=== PATIENT | male | born 1965 | race Caucasian/White ===

== ENCOUNTER 2020-11-14 17:26 | Emergency (ER) | payer SELFPAY ==
--- NOTE | 2020-11-14 17:31 | ED.BACK ---
HPI - Back Pain/Injury General Chief Complaint: Back Pain/Injury Stated Complaint: weak / back pain Time Seen by Provider: 11/14/20 17:31 Source: patient and RN notes reviewed History of Present Illness HPI Narrative: Patient is a 55-year-old male who presents the urgent care with complaints of weakness and back pain. Patient states the weakness started about a month and a half ago and is significantly gotten worse over the last couple days. Patient states that he feels like his legs are going to give out from underneath him . Patient states the back pain has been ongoing for approximately 1 year or greater. Patient has no recent new falls or injuries. Patient has no confusion but does complain of some intermittent dizziness. Patient is currently denying any headaches. No notable slurred speech or weakness to one side greater than the other. No other acute complaints. No acute distress noted. Patient ambulates without difficulty. Patient aware of the plan of care. Some parts of this dictation were generated by voice recognition software and may contain typographical and/or grammatical inaccuracies. Related Data Home Medications Medication Instructions Recorded Confirmed No Home Medications 11/14/20 11/14/20 Allergies Allergy/AdvReac Type Severity Reaction Status Date / Time No Known Allergies Allergy Verified 11/14/20 17:49 Review of Systems Review of Systems: Narrative: CONSTITUTIONAL: Denies fever, chills, or sweats. EYES: Denies visual changes, redness, or discharge. ENT: Denies rhinorrhea, congestion, sore throat, or otalgia. CARDIOVASCULAR: Denies chest pain, palpitations, or edema. RESPIRATORY: Denies cough or dyspnea. GASTROINTESTINAL: Denies abdominal pain, nausea, vomiting, or diarrhea. GENITOURINARY: Denies dysuria or hematuria. SKIN: Denies rash or itching. MUSCULOSKELETAL: Reports of acute on chronic low back pain NEUROLOGIC: Reports of bilateral lower leg weakness All other systems reviewed are negative, except as documented in HPI. PMFSH Comments At the time of my signature, I reviewed and agree with the nursing past medical, surgical, social, and family history. There is no relevant family history pertinent to the patient complaint. Exam Narrative: Exam Narrative: GENERAL: This is a well-nourished, well-developed patient, in no apparent distress. HEAD: normocephalic, atraumatic. EYES: PERRL. Sclera clear/white. Vision is grossly intact. EARS: External ears normal NOSE: External nose normal with no obvious nasal discharge, nares without redness, no rhinorrhea. THROAT: Mucous membranes moist NECK: Neck supple CARDIOVASCULAR: Regular rate and rhythm without murmurs, gallops, or rubs. RESPIRATORY: Clear to auscultation. Breath sounds equal bilaterally. No wheezes, rales, or rhonchi. SKIN: warm, intact with no suspicious lesions or rash, good texture and turgor. NEURO: awake, alert, and oriented to person, place and time. There were no obvious focal neurologic abnormalities. Ambulates without difficulty. 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 BACK: Nontender without deformity or crepitance. Course Vital Signs Vital signs: Vital Signs Temperature 97.7 F 11/14/20 17:32 Pulse Rate 87 11/14/20 17:32 Respiratory Rate 14 11/14/20 17:32 Blood Pressure 149/86 H 11/14/20 17:32 Pulse Oximetry 98 11/14/20 17:32 Temperature 97.7 F 11/14/20 17:32 Pulse Rate 87 11/14/20 17:32 Respiratory Rate 14 11/14/20 17:32 Blood Pressure 149/86 H 11/14/20 17:32 Pulse Oximetry 98 11/14/20 17:32 Reviewed-patient is informed that they may have pre-hypertension or hypertension based on a blood pressure reading in the department. I recommend the patient call the primary care provider listed on their discharge instructions or a physician of their choice this week to arrange follow-up for further evaluation of possible pre-hypertension or hyp
[2020-11-14 17:32] VITALS: BP 149/86; PULSE 87; RESP 14; TEMP 36.5; O2SAT 98
== END 2020-11-14 18:05 | disposition short-term general hospital (02) ==
PROVIDERS: Emergency Provider Nurse Practitioner Family
DX: R53.1 Weakness (principal); M54.9 Dorsalgia, unspecified; R03.0 Elevated blood-pressure reading, without diagnosis of hypertension
CPT/HCPCS: 99212; G0463